=== PATIENT | female | born 1960 | race Caucasian/White ===

== ENCOUNTER 2018-09-06 10:16 | Outpatient (CLI) | payer OTHER ==
--- NOTE | 2018-09-06 21:55 | ULT ---
RIGHT UPPER QUADRANT ULTRASOUND 09/06/18 Ultrasonography of the right upper quadrant was performed for evaluation of pain. The liver was borderline in size measuring 15.7 cm in oblique sagittal length. It may be slightly ech ogenic but not enough for me to definitively diagnose fatty infiltration. No masses or dilated ducts were seen. The gallbladder contained no stones or wall thickening. The common bile duct was a normal 5 mm in caliber. The pancreas was largely shadowed by gas. The few areas that were visible appeared n ormal. The right kidney appeared normal and was 10.3 cm in length. IMPRESSION: No definite acute findings. See comments above. POS: HOME
== END 2018-09-06 10:17 | disposition home or self-care (01) ==
LOC: BURULT 10:16
PROVIDERS: ATTEND Family Medicine
DX: R10.11 Right upper quadrant pain (principal)
CPT/HCPCS: 76705

== ENCOUNTER 2020-09-07 03:26 | Emergency (ER) | payer OTHER ==
[2020-09-07] MEDS ORDERED: Ondansetron PF 4 MG/2 ML Vial ONE (03:47)
[2020-09-07] MEDS ORDERED: Aspirin Chewable 81 MG TAB ONE (03:47)
[2020-09-07] MEDS ORDERED: Nitroglycerin 0.4 MG TAB 1 EACH ONE ×2 (03:47→04:18)
[2020-09-07 03:54] LABS: #Basophils 0.1 thou/uL (0.0-0.2); #Eosinphils 0.3 thou/uL (0.0-0.7); #Lymphocytes 3.2 thou/uL (1.20-3.40); #Monocytes 0.5 thou/uL (0.11-0.59); #Neutrophils 2.9 thou/uL (1.40-6.50); %Basophils 1.4 % (0.0-1.0); %Eosinophils 3.7 % (0.0-10.0); %Lymphocytes 46.1 % (21.0-51.0); %Monocytes 7.6 % (0.0-10.0); %Neutrophils 41.1 % (42.0-75.0); Hemoglobin 14.2 g/dL (12.0-16.0); Mean Corpuscular HGB CONC 32.6 g/dL (32.0-36.0); Mean Corpuscular Hemoglobin 31.3 pg (27.0-31.0); Mean Corpuscular Volume 95.8 fL (78.0-98.0); Mean Platelet Volume 6.9 fL (7.4-10.4); Platelet Count 313 thou/uL (130-400); RBC Distribution Width 11.6 % (11.5-14.5); Red Blood Cell (RBC) Count 4.55 mill/uL (4.20-5.40)
[2020-09-07 04:11] LABS: ALT (SGPT) 28 U/L (8-55); AST (SGOT) 18 U/L (5-34); Albumin 4.3 g/dL (3.5-5.0); Alkaline Phosphatase 107 U/L (40-110); Anion Gap 12 mmol/L (10-20); BUN (Urea Nitrogen) 20 mg/dL (9.8-20.1); Bilirubin, Total 0.4 mg/dL (0.2-1.2); Calc. Creatinine Clearance 0 mL/min (70-130); Calcium 9.8 mg/dL (7.8-10.44); Carbon Dioxide 28 mmol/L (22-29); Chloride 103 mmol/L (98-107); Globulin 2.5 g/dL (2.4-3.5); Glucose 115 mg/dL (70-105); Potassium 3.8 mmol/L (3.5-5.1); Protein, Total 6.8 g/dL (6.0-8.3); Sodium 139 mmol/L (136-145)
== END 2020-09-07 05:40 | disposition short-term general hospital (02) ==
LOC: BURERS 03:26
DX: R07.9 Chest pain, unspecified (principal); E11.9 Type 2 diabetes mellitus without complications; E78.5 Hyperlipidemia, unspecified; I10 Essential (primary) hypertension; Z79.84 Long term (current) use of oral hypoglycemic drugs; Z79.82 Long term (current) use of aspirin; Z79.899 Other long term (current) drug therapy
CPT/HCPCS: 71045; 80053; 84484; 85025; 85379; 93005; 94760; 96374; J2405

== ENCOUNTER 2021-02-02 10:24 | Outpatient (CLI) | payer OTHER | END 2021-02-02 10:25 | disposition home or self-care (01) | LOC: BURLAB 10:24 → BURRAD 10:25 | PROVIDERS: ATTEND Family Medicine | DX: M25.561 Pain in right knee (principal); M25.562 Pain in left knee; M17.0 Bilateral primary osteoarthritis of knee ==